=== PATIENT | male | born 1995 | race Two or more races ===

== ENCOUNTER 2022-02-15 11:32 | Emergency (ER) | payer MEDICAID, OTHER ==
[~2022-02-15] VITALS: Ht 175.3 cm; Wt 95.0 kg
[2022-02-15] MEDS ORDERED: ONDANSETRON HCL 4 MG/2 ML VIAL IV SCH (13:00)
[2022-02-15] MEDS ORDERED: KETOROLAC TROMETH 60MG/2ML VIAL IV ONE (13:00)
[2022-02-15] MEDS ORDERED: LACTATED RINGER'S 1,000 ML IV ONE ×2 (13:00)
[2022-02-15 13:26] LABS: Basophils # (auto) 0 10 ^3/uL (0-0.2); Basophils % (auto) 0.3 % (0.0-2.0); Eosinophils # (auto) 0 10 ^3/uL (0-0.8); Eosinophils % (auto) 0.2 % (0.0-7.0); Hematocrit 46.4 % (41.0-53.0); Hemoglobin 15.7 g/dL (13.5-17.5); Lymphocytes # (auto) 1.4 10 ^3/uL (0.4-5.4); Mean Corpuscular Hemoglobin 28.6 pg (28.0-32.0); Mean Corpuscular Hgb Conc. 33.8 g/dL (32.0-36.0); Mean Corpuscular Volume 84.5 fL (80.0-100.0); Monocytes # (auto) 1.7 10 ^3/uL (0-1.3); Monocytes % (auto) 15.3 % (0.0-12.0); Neutrophils # (auto) 7.8 10 ^3/uL (1.6-8.6); Neutrophils % (auto) 71.2 % (37.0-80.0); Nucleated Red Blood Cells % 0.1 %; Red Blood Cells 5.49 10^6/uL (4.5-5.90); Red Cell Distribution Width 13.5 % (11.8-14.3)
[2022-02-15 13:35] LABS: INR 1.03 (0.9-1.15); Partial Thromboplastin Time 30.7 sec (24.6-33.4)
[2022-02-15 13:40] LABS: Albumin 4.1 g/dL (3.4-5.0); BUN/Creatinine Ratio 22.1; Calcium 9.3 mg/dL (8.5-10.1)
[2022-02-15 13:43] LABS: Bilirubin, Total 0.7 mg/dL (0.2-1.0)
[2022-02-15 13:48] LABS: Potassium 2.8 mmol/L (3.5-5.1)
[2022-02-15] MEDS ORDERED: IOHEXOL 300 MG/ML 100ML BOTTLE IJ ONE (13:55)
[2022-02-15] MEDS ORDERED: LACTATED RINGER'S 2,000 ML IV ONE (14:30)
[2022-02-15] MEDS ORDERED: MAGNESIUM SULFATE 1GM/100ML 100 ML IV SCH (14:30)
[2022-02-15] MEDS ORDERED: POTASSIUM CHL 20 Meq TABLET PO ONE (15:00)
[2022-02-15] MEDS ORDERED: ONDA-155 PO (17:15)
[2022-02-15] MEDS ORDERED: MAA30LQ GT (17:15)
[2022-02-15] MEDS ORDERED: AMOX500T86 PO (17:15)
[2022-02-15 17:37] LABS: Urine WBC None Seen /hpf (0 - 3)
[2022-02-15 17:56] LABS: Urine Bacteria NONE SEEN /hpf (None Seen); Urine Blood 3+ /uL (Negative); Urine Hyaline Cast MANY /lpf (0 - 2); Urine Mucus FEW (None Seen)
[2022-02-15 18:10] LABS: Urine Specific Gravity > 1.050 (1.001-1.035)
[2022-02-15 18:21] VITALS: BP 133/92
== END 2022-02-15 18:27 | disposition home or self-care (01) ==
LOC: ER 11:32
DX: K52.9 Noninfective gastroenteritis and colitis, unspecified (principal)
CPT/HCPCS: 36415; 74177; 80053; 81001; 83615; 83735; 85025; 85610; 85730; 96360; 96361; 99285; J7030; Q9967